=== PATIENT | female | born 1960 | race Hispanic/Latino ===

== ENCOUNTER 2021-06-20 11:09 | Inpatient (IN) | payer SELFPAY ==
[~2021-06-20] VITALS: Ht 162.6 cm; Wt 59.0 kg
[2021-06-20] MEDS ORDERED: SODIUM CHLORIDE 0.9% 1000ML 1,000 ML IV STA (11:43)
[2021-06-20] MEDS ORDERED: Morphine 2mg Syringe 2 MG/ML SYR IV NR (11:43)
[2021-06-20] MEDS ORDERED: SODIUM CHLORIDE 0.9% 1000ML 1,000 ML IV ONE (11:45)
[2021-06-20] MEDS ORDERED: NITROGLYCERIN 0.4 MG SUBL SL NR (11:45)
[2021-06-20] MEDS ORDERED: NITROGLYCERIN 0.4 MG SUBL ONE (11:47)
[2021-06-20] MEDS ORDERED: SODIUM CHLORIDE 0.9% 1000ML 1,000 ML ONE (11:48)
[2021-06-20 11:54] LABS: BASOPHILS % 0.4 % (0.0-1.0); EOSINOPHILS # (AUTO) 0.2 (0.0-0.4); EOSINOPHILS % 2.3 % (0.0-6.0); HEMATOCRIT 43.1 % (34.2-44.1); HEMOGLOBIN 14.6 g/dL (12.0-16.0); LYMPHOCYTES % 27.6 % (18.0-39.1); MEAN CORPUSCULAR HGB CONC 33.9 g/dL (31-35); MEAN CORPUSCULAR VOLUME 88.7 fL (81-99); MONOCYTES # (AUTO) 0.6 (0.2-0.8); MONOCYTES % 8.3 % (4.4-11.3); NEUTROPHILS # (AUTO) 4.5 (2.1-6.9); NEUTROPHILS % 61.1 % (38.7-80.0); PLATELET COUNT 196 x10e3/uL (140-360); RED BLOOD COUNT 4.86 x10e6/uL (3.6-5.1); RED CELL DISTRIBUTION WIDTH 12.9 % (11.7-14.4)
[2021-06-20] MEDS ORDERED: ACETAMINOPHEN 325 MG TAB PO ONE (12:00)
[2021-06-20] MEDS ORDERED: ONDANSETRON HCL INJ 2MG/ML 2ML 2 MG/ML VIAL IV NR (12:00)
[2021-06-20] MEDS ORDERED: DOCUSATE SODIUM 100 MG CAP PO PRN (12:00)
[2021-06-20] MEDS ORDERED: ONDANSETRON HCL INJ 2MG/ML 2ML 2 MG/ML VIAL IV PRN ×2 (12:00→12:30)
[2021-06-20 12:04] LABS: INR 0.94; PARTIAL THROMBOPLASTIN TIME 33.6 seconds (23.8-35.5); PROTHROMBIN TIME 13.4 seconds (11.9-14.5)
[2021-06-20 12:15] LABS: ALANINE AMINOTRANSFERASE 15 IU/L (0-55); ALBUMIN 3.7 g/dL (3.5-5.0); ALBUMIN/GLOBULIN RATIO 1.1 (0.8-2.0); ALKALINE PHOSPHATASE 82 IU/L (40-150); ANION GAP 12.9 mmol/L (8-16); BLOOD UREA NITROGEN 16 mg/dL (7-26); BUN/CREATININE RATIO 23 (6-25); CALCIUM 8.3 mg/dL (8.4-10.2); CARBON DIOXIDE 24 mmol/L (22-29); CHLORIDE 108 mmol/L (98-107); CREATINE KINASE 71 IU/L (29-168); CREATININE, SERUM 0.69 mg/dL (0.57-1.11); EST GLOMERULAR FILTRATION RATE 86 ML/MIN (60-); GLUCOSE 101 mg/dL (74-118); MAGNESIUM 1.7 MG/DL (1.3-2.1); SODIUM 142 mmol/L (136-145)
[2021-06-20 12:17] LABS: POTASSIUM 2.9 mmol/L (3.5-5.1)
[2021-06-20] MEDS ORDERED: POTASSIUM CHLORIDE 20 MEQ TAB CR PO NR (12:30)
[2021-06-20 12:34] LABS: CHOL/HDL RATIO 2.6 (3.0-3.6)
[2021-06-20] MEDS: FAMOTIDINE 20 MG/2 ML VIAL IV SCH (12:49)
[2021-06-20 14:40] VITALS: BP 120/61
[2021-06-20 15:00] VITALS: BP 120/61
[2021-06-20] MEDS ORDERED: KETOROLAC TROMETHAMINE 30 MG/ML VIAL IV NR (15:26)
[2021-06-20] MEDS ORDERED: ATENOLOL50 MG PO (18:35)
[2021-06-20] MEDS ORDERED: POTASSIUM GLUCO99 M1 PO (18:35)
[2021-06-20] MEDS ORDERED: ASPIRIN81 MG PO (18:35)
[2021-06-20] MEDS ORDERED: HYDROCHLOROTHIA25 MG PO (18:36)
[2021-06-20] MEDS ORDERED: AMLODIPINE BESY10 MG PO (18:36)
[2021-06-20] MEDS ORDERED: LIPITOR20 MG PO (18:36)
[2021-06-20 19:30] VITALS: BP 109/60
[2021-06-20 19:39] LABS: CREATINE KINASE 54 IU/L (29-168)
[2021-06-20] MEDS: Morphine 2mg Syringe 2 MG/ML SYR IV PRN (20:44)
[2021-06-20] MEDS: METOPROLOL TARTRATE 25 MG TAB PO SCH (20:44)
[2021-06-20 20:54] VITALS: BP 109/60
[2021-06-21 00:15] VITALS: BP 98/68
[2021-06-21] MEDS: FAMOTIDINE 20 MG/2 ML VIAL IV SCH (01:41)
[2021-06-21 04:26] VITALS: BP 107/60
[2021-06-21 05:28] LABS: BASOPHILS % 0.2 % (0.0-1.0); EOSINOPHILS # (AUTO) 0.2 (0.0-0.4); EOSINOPHILS % 3.8 % (0.0-6.0); HEMATOCRIT 41.2 % (34.2-44.1); HEMOGLOBIN 13.5 g/dL (12.0-16.0); LYMPHOCYTES # (AUTO) 2.3 (1.0-3.2); LYMPHOCYTES % 36.4 % (18.0-39.1); MEAN CORPUSCULAR HEMOGLOBIN 29.7 pg (28-32); MEAN CORPUSCULAR HGB CONC 32.8 g/dL (31-35); MEAN CORPUSCULAR VOLUME 90.5 fL (81-99); MONOCYTES # (AUTO) 0.6 (0.2-0.8); MONOCYTES % 8.8 % (4.4-11.3); NEUTROPHILS # (AUTO) 3.2 (2.1-6.9); NEUTROPHILS % 50.6 % (38.7-80.0); PLATELET COUNT 168 x10e3/uL (140-360); RED BLOOD COUNT 4.55 x10e6/uL (3.6-5.1); RED CELL DISTRIBUTION WIDTH 13.1 % (11.7-14.4)
[2021-06-21 05:56] LABS: CREATINE KINASE 45 IU/L (29-168)
[2021-06-21 06:33] LABS: ALBUMIN 3.2 g/dL (3.5-5.0); CALCIUM 8.4 mg/dL (8.4-10.2); CHOL/HDL RATIO 2.9 (3.0-3.6); CREATININE, SERUM 0.75 mg/dL (0.57-1.11)
[2021-06-21 07:50] VITALS: BP 110/72
[2021-06-21] MEDS: METOPROLOL TARTRATE 25 MG TAB PO SCH ×2 (08:41→21:00)
[2021-06-21] MEDS ORDERED: LOPRESSOR25 MG PO (08:53)
[2021-06-21] MEDS ORDERED: ASPIRIN 81 MG ENTERIC COATED PO SCH (09:00)
[2021-06-21] MEDS: MELOXICAM 7.5 MG TAB PO SCH (09:30)
[2021-06-21] MEDS: PANTOPRAZOLE SOD 40 MG TABEC PO SCH (09:30)
[2021-06-21] MEDS: ASPIRIN 325 MG TAB PO SCH (09:30)
[2021-06-21 13:39] VITALS: BP 116/62
[2021-06-21 13:52] LABS: CREATINE KINASE 42 IU/L (29-168)
[2021-06-21 18:26] VITALS: BP 116/61
[2021-06-21] MEDS: Morphine 2mg Syringe 2 MG/ML SYR IV PRN (18:39)
[2021-06-21 20:00] VITALS: BP 123/61
[2021-06-22 00:15] VITALS: BP 127/66
[2021-06-22 04:00] VITALS: BP 116/66
[2021-06-22 08:07] VITALS: BP 114/67
[2021-06-22 08:26] VITALS: BP 114/67
[2021-06-22] MEDS ORDERED: REGADENOSON 0.4 MG/5 ML SYR IV ONE (09:59)
[2021-06-22] MEDS: ASPIRIN 325 MG TAB PO SCH (10:50)
[2021-06-22] MEDS: PANTOPRAZOLE SOD 40 MG TABEC PO SCH (10:50)
[2021-06-22] MEDS: MELOXICAM 7.5 MG TAB PO SCH (10:50)
[2021-06-22 12:16] VITALS: BP 130/63
[2021-06-22] MEDS: METOPROLOL TARTRATE 25 MG TAB PO SCH (13:28)
[2021-06-22] MEDS ORDERED: MELOXICAM7.5 MG PO (15:11)
[2021-06-22 15:56] VITALS: BP 135/70
[2021-06-22] MEDS ORDERED: ONDANSETRON HCL 4 MG ORAL DISINTEGRATING TAB PO PRN (16:00)
== END 2021-06-22 17:41 | disposition home or self-care (01) | DRG 313 ==
LOC: ER 11:21 → ERHOLD 12:26 → MED/SURG 14:40 → OBSVTOIN 06-21 12:02
PROVIDERS: ADMIT Internal Medicine; ATTEND Internal Medicine
DX: R07.89 Other chest pain (principal); I48.20 Chronic atrial fibrillation, unspecified; R42 Dizziness and giddiness; I10 Essential (primary) hypertension; Z82.49 Family history of ischemic heart disease and other diseases of the circulatory system; E87.6 Hypokalemia; Z20.822 Contact with and (suspected) exposure to COVID-19
CPT/HCPCS: 36415; 71045; 78452; 80053; 80061; 82550; 82553; 83735; 83880; 84484; 85025; 85379; 85610; 85730; 93005; 93017; 93306; 94799; 99284; A9502; G0378; J2270; J2405; J7030; U0002

== ENCOUNTER 2021-11-30 11:04 | Emergency (ER) | payer OTHER ==
[~2021-11-30] VITALS: Ht 162.6 cm; Wt 59.0 kg
[~2021-11-30 11:04] MED LIST: AMLODIPINE BESY10 MG PO; ASPIRIN81 MG PO; ATENOLOL50 MG PO; HYDROCHLOROTHIA25 MG PO; LIPITOR20 MG PO; LOPRESSOR25 MG PO; MELOXICAM7.5 MG PO; POTASSIUM GLUCO99 M1 PO
[2021-11-30] MEDS ORDERED: PREDNISONE50 MG PO (12:05)
[2021-11-30] MEDS ORDERED: PROAIR HFA INH8.5 GM PEG (12:05)
[2021-11-30] MEDS ORDERED: BENZONATATE200 MG PO (12:05)
[2021-11-30] MEDS ORDERED: PROAIR HFA INH8.5 GM PO (12:07)
[2021-11-30] MEDS ORDERED: DEXAMETHASONE SOD PHOS 10 MG/1 ML VIAL IM ONE (12:15)
== END 2021-11-30 12:13 | disposition home or self-care (01) ==
LOC: ER 11:13
DX: R05.9 Cough, unspecified (principal); J45.909 Unspecified asthma, uncomplicated; I10 Essential (primary) hypertension; E78.5 Hyperlipidemia, unspecified; I48.91 Unspecified atrial fibrillation
CPT/HCPCS: 99282; J1100